=== PATIENT | male | born 1960 | race Caucasian/White ===

== ENCOUNTER 2017-08-06 04:01 | Emergency (ER) | payer MEDICARE ==
[~2017-08-06] VITALS: Ht 177.8 cm; Wt 87.6 kg
[~2017-08-06 04:01] MED LIST: HYDR-3534 PO; LEVO150T7 PO; METH4TAB6 PO; NAPR250T57 PO; NYST100010 SS; OMEP20TA PO
[2017-08-06 04:04] VITALS: BP 164/101; PULSE 99; RESP 18; TEMP 98.7; O2SAT 96
[2017-08-06] MEDS ORDERED: PROPARACAINE HCL 0.5% OPHT SOLN 15 ML BTL LEFT EYE ONE (04:15)
[2017-08-06] MEDS ORDERED: OMEP20TA PO (04:22)
[2017-08-06] MEDS ORDERED: HYDR-3288 PO (04:22)
[2017-08-06] MEDS ORDERED: LEVO150T7 PO (04:22)
[2017-08-06] MEDS ORDERED: POLY10O LEFT EYE (04:29)
--- NOTE | 2017-08-06 04:29 | PD ---
HPI Chief Complaint: Eye Problems/Injury Time Seen by Provider: 04:12 Travel History International Travel<30 days: No Contact w/Intl Traveler<30days: No Traveled to known affect area: No History of Present Illness HPI 57-year-old male here for evaluation of left side pain and left eye foreign body. The patient reports that he woke up at 11:00 PM with these symptoms. He noticed a black speck in his eye which she is unable to flush out. He denies vision changes. He is not work contacts. Pain is moderate. PFSH Past Medical History Cancer: Yes (larynx) Cardiovascular Problems: No Diabetes: No Endocrine: Yes Genitourinary: No Hepatitis: No Hiatal Hernia: No Immune Disorder: No Musculoskeletal: Yes (athritis) Neurologic: No Psychiatric: No Reproductive: No Respiratory: No Thyroid Disease: Yes ?: Not Past Surgical History AICD: No Joint Replacement: No Oral Surgery: Yes (laryngectomy) Pacemaker: No Social History Tobacco Use: No (former smoker) Substance Use: No Allergies-Medications (Allergen,Severity, Reaction): Coded Allergies: No Known Allergies (Unverified , 11/05/14) Reported Meds & Prescriptions Reported Meds & Active Scripts Active Polytrim Opth Drops (Polymyxin/Trimethoprim Sulfate) 10,000-0.1 Unit/Ml-% Soln 1 Drop LEFT EYE Q6HR Reported [place] (Hydrocodone-Acetaminophen) 7.5-325 mg Tab 1 Tab PO Q6H PRN Levothyroxine (Levothyroxine Sodium) 150 Mcg Tab 150 Mcg PO DAILY Omeprazole 20 Mg Tab 20 Mg PO DAILY Review of Systems Except as stated in HPI: all other systems reviewed are Neg Physical Exam Narrative GENERAL: Well-developed, well-nourished, comfortable, no apparent distress. EYES: Bilateral pupils are 3 mm, equal, round, reactive to light. There is left scleral injection. No eye drainage. Bilateral corneas are clear. Proparacaine was placed in the left eye with immediate relief of pain. Eyelids were everted and a small black speck was removed from the superior eyelid. Floor seen stain shows slight linear/horizontal corneal abrasion on the left eye 6 o'clock position. Negative Dawson sign. Pressure in the right eye is 19 mmHg. Pressure in the left eye is 18 mmHg. Visual acuity shows 20/40 in the left eye, 20/30 in the right eye, 20/25 in bilateral eyes. PSYCHIATRIC: Appropriate mood and affect; insight and judgment normal. Data Data Last Documented VS Vital Signs Date Time Temp Pulse Resp B/P (MAP) Pulse Ox O2 Delivery O2 Flow Rate FiO2 08/06/17 05:00 87 16 171/91 (117) 97 08/06/17 04:04 98.7 Orders Orders Proparacaine 0.5% Opth Soln (Alcaine 0.5 (08/06/17 04:15) Polymyxin/Trimethop Opht Soln (Polytrim (08/06/17 04:30) Ed Discharge Order (08/06/17 04:29) [facility] Medical Decision Making Medical Screen Exam Complete: Yes Emergency Medical Condition: Yes Differential Diagnosis Eye foreign body, corneal abrasion Narrative Course EYES: Bilateral pupils are 3 mm, equal, round, reactive to light. There is left scleral injection. No eye drainage. Bilateral corneas are clear. Proparacaine was placed in the left eye with immediate relief of pain. Eyelids were everted and a small black speck was removed from the superior eyelid. Floor seen stain shows slight linear/horizontal corneal abrasion on the left eye 6 o'clock position. Negative Dawson sign. Pressure in the right eye is 19 mmHg. Pressure in the left eye is 18 mmHg. Visual acuity shows 20/40 in the left eye, 20/30 in the right eye, 20/25 in bilateral eyes. The patient has a corneal abrasion on the left eye and a small foreign body was removed from the superior eyelid. Patient will be discharged home with a prescription for Polytrim and advised to follow-up with an window trimmer apprentice this week. He was informed on when to return to the emergency department. He verbalizes understanding and agreement with plan. Diagnosis Primary Impression: Foreign body of left eye Qualified Codes: T15.92XA - Foreign body on external eye, part unspecified, left eye, initial encounter Additional Impression: Left corneal abrasion Qualified Codes: S05.02XA - Injury of conjunctiva and corneal abrasion without foreign body, left eye, initial encounter Referrals: Carlee Arreola MD 3 days Additional Instructions: Follow-up with window trimmer apprentice Dr. Arreola or window trimmer apprentice of your choice this week. Take antibiotic eyedrops as prescribed. Return to the emergency department for worsening symptoms or any other concerns. Scripts Polymyxin B-Trimethoprim Opth Drops (Polytrim Opth Drops) 10,000-0.1 Unit/Ml-% Soln 1 DROP LEFT EYE Q6HR for Mgmt Bacterial Infection, #1 BOTTLE 0 Refills Prov: Seun Munoz MD 08/06/17 Disposition: 01 DISCHARGE HOME Condition: Stable Seun Munoz MD Aug 06, 2017 04:29
--- NOTE | 2017-08-06 04:29 | PD ---
HPI Chief Complaint: Eye Problems/Injury Time Seen by Provider: 04:12 Travel History International Travel<30 days: No Contact w/Intl Traveler<30days: No Traveled to known affect area: No History of Present Illness HPI 57-year-old male here for evaluation of left side pain and left eye foreign body. The patient reports that he woke up at 11:00 PM with these symptoms. He noticed a black speck in his eye which she is unable to flush out. He denies vision changes. He is not work contacts. Pain is moderate. PFSH Past Medical History Cancer: Yes (larynx) Cardiovascular Problems: No Diabetes: No Endocrine: Yes Genitourinary: No Hepatitis: No Hiatal Hernia: No Immune Disorder: No Musculoskeletal: Yes (athritis) Neurologic: No Psychiatric: No Reproductive: No Respiratory: No Thyroid Disease: Yes ?: Not Past Surgical History AICD: No Joint Replacement: No Oral Surgery: Yes (laryngectomy) Pacemaker: No Social History Tobacco Use: No (former smoker) Substance Use: No Allergies-Medications (Allergen,Severity, Reaction): Coded Allergies: No Known Allergies (Unverified , 11/05/14) Reported Meds & Prescriptions Reported Meds & Active Scripts Active Polytrim Opth Drops (Polymyxin/Trimethoprim Sulfate) 10,000-0.1 Unit/Ml-% Soln 1 Drop LEFT EYE Q6HR Reported [place] (Hydrocodone-Acetaminophen) 7.5-325 mg Tab 1 Tab PO Q6H PRN Levothyroxine (Levothyroxine Sodium) 150 Mcg Tab 150 Mcg PO DAILY Omeprazole 20 Mg Tab 20 Mg PO DAILY Review of Systems Except as stated in HPI: all other systems reviewed are Neg Physical Exam Narrative GENERAL: Well-developed, well-nourished, comfortable, no apparent distress. EYES: Bilateral pupils are 3 mm, equal, round, reactive to light. There is left scleral injection. No eye drainage. Bilateral corneas are clear. Proparacaine was placed in the left eye with immediate relief of pain. Eyelids were everted and a small black speck was removed from the superior eyelid. Floor seen stain shows slight linear/horizontal corneal abrasion on the left eye 6 o'clock position. Negative Dawson sign. Pressure in the right eye is 19 mmHg. Pressure in the left eye is 18 mmHg. Visual acuity shows 20/40 in the left eye, 20/30 in the right eye, 20/25 in bilateral eyes. PSYCHIATRIC: Appropriate mood and affect; insight and judgment normal. Data Data Last Documented VS Vital Signs Date Time Temp Pulse Resp B/P (MAP) Pulse Ox O2 Delivery O2 Flow Rate FiO2 08/06/17 05:00 87 16 171/91 (117) 97 08/06/17 04:04 98.7 Orders Orders Proparacaine 0.5% Opth Soln (Alcaine 0.5 (08/06/17 04:15) Polymyxin/Trimethop Opht Soln (Polytrim (08/06/17 04:30) Ed Discharge Order (08/06/17 04:29) [facility] Medical Decision Making Medical Screen Exam Complete: Yes Emergency Medical Condition: Yes Differential Diagnosis Eye foreign body, corneal abrasion Narrative Course EYES: Bilateral pupils are 3 mm, equal, round, reactive to light. There is left scleral injection. No eye drainage. Bilateral corneas are clear. Proparacaine was placed in the left eye with immediate relief of pain. Eyelids were everted and a small black speck was removed from the superior eyelid. Floor seen stain shows slight linear/horizontal corneal abrasion on the left eye 6 o'clock position. Negative Dawson sign. Pressure in the right eye is 19 mmHg. Pressure in the left eye is 18 mmHg. Visual acuity shows 20/40 in the left eye, 20/30 in the right eye, 20/25 in bilateral eyes. The patient has a corneal abrasion on the left eye and a small foreign body was removed from the superior eyelid. Patient will be discharged home with a prescription for Polytrim and advised to follow-up with an diamond cutter this week. He was informed on when to return to the emergency department. He verbalizes understanding and agreement with plan. Diagnosis Primary Impression: Foreign body of left eye Qualified Codes: T15.92XA - Foreign body on external eye, part unspecified, left eye, initial encounter Additional Impression: Left corneal abrasion Qualified Codes: S05.02XA - Injury of conjunctiva and corneal abrasion without foreign body, left eye, initial encounter Referrals: Carlee Arreola MD 3 days Additional Instructions: Follow-up with diamond cutter Dr. Arreola or diamond cutter of your choice this week. Take antibiotic eyedrops as prescribed. Return to the emergency department for worsening symptoms or any other concerns. Scripts Polymyxin B-Trimethoprim Opth Drops (Polytrim Opth Drops) 10,000-0.1 Unit/Ml-% Soln 1 DROP LEFT EYE Q6HR for Mgmt Bacterial Infection, #1 BOTTLE 0 Refills Prov: Seun Munoz MD 08/06/17 Disposition: 01 DISCHARGE HOME Condition: Stable Seun Munoz MD Aug 06, 2017 04:29
--- NOTE | 2017-08-06 04:29 | PD ---
HPI Chief Complaint: Eye Problems/Injury Time Seen by Provider: 04:12 Travel History International Travel<30 days: No Contact w/Intl Traveler<30days: No Traveled to known affect area: No History of Present Illness HPI 57-year-old male here for evaluation of left side pain and left eye foreign body. The patient reports that he woke up at 11:00 PM with these symptoms. He noticed a black speck in his eye which she is unable to flush out. He denies vision changes. He is not work contacts. Pain is moderate. PFSH Past Medical History Cancer: Yes (larynx) Cardiovascular Problems: No Diabetes: No Endocrine: Yes Genitourinary: No Hepatitis: No Hiatal Hernia: No Immune Disorder: No Musculoskeletal: Yes (athritis) Neurologic: No Psychiatric: No Reproductive: No Respiratory: No Thyroid Disease: Yes ?: Not Past Surgical History AICD: No Joint Replacement: No Oral Surgery: Yes (laryngectomy) Pacemaker: No Social History Tobacco Use: No (former smoker) Substance Use: No Allergies-Medications (Allergen,Severity, Reaction): Coded Allergies: No Known Allergies (Unverified , 11/05/14) Reported Meds & Prescriptions Reported Meds & Active Scripts Active Polytrim Opth Drops (Polymyxin/Trimethoprim Sulfate) 10,000-0.1 Unit/Ml-% Soln 1 Drop LEFT EYE Q6HR Reported [place] (Hydrocodone-Acetaminophen) 7.5-325 mg Tab 1 Tab PO Q6H PRN Levothyroxine (Levothyroxine Sodium) 150 Mcg Tab 150 Mcg PO DAILY Omeprazole 20 Mg Tab 20 Mg PO DAILY Review of Systems Except as stated in HPI: all other systems reviewed are Neg Physical Exam Narrative GENERAL: Well-developed, well-nourished, comfortable, no apparent distress. EYES: Bilateral pupils are 3 mm, equal, round, reactive to light. There is left scleral injection. No eye drainage. Bilateral corneas are clear. Proparacaine was placed in the left eye with immediate relief of pain. Eyelids were everted and a small black speck was removed from the superior eyelid. Floor seen stain shows slight linear/horizontal corneal abrasion on the left eye 6 o'clock position. Negative Dawson sign. Pressure in the right eye is 19 mmHg. Pressure in the left eye is 18 mmHg. Visual acuity shows 20/40 in the left eye, 20/30 in the right eye, 20/25 in bilateral eyes. PSYCHIATRIC: Appropriate mood and affect; insight and judgment normal. Data Data Last Documented VS Vital Signs Date Time Temp Pulse Resp B/P (MAP) Pulse Ox O2 Delivery O2 Flow Rate FiO2 08/06/17 05:00 87 16 171/91 (117) 97 08/06/17 04:04 98.7 Orders Orders Proparacaine 0.5% Opth Soln ([place] 0.5 (08/06/17 04:15) Polymyxin/Trimethop Opht Soln (Polytrim (08/06/17 04:30) Ed Discharge Order (08/06/17 04:29) [facility] Medical Decision Making Medical Screen Exam Complete: Yes Emergency Medical Condition: Yes Differential Diagnosis Eye foreign body, corneal abrasion Narrative Course EYES: Bilateral pupils are 3 mm, equal, round, reactive to light. There is left scleral injection. No eye drainage. Bilateral corneas are clear. Proparacaine was placed in the left eye with immediate relief of pain. Eyelids were everted and a small black speck was removed from the superior eyelid. Floor seen stain shows slight linear/horizontal corneal abrasion on the left eye 6 o'clock position. Negative Dawson sign. Pressure in the right eye is 19 mmHg. Pressure in the left eye is 18 mmHg. Visual acuity shows 20/40 in the left eye, 20/30 in the right eye, 20/25 in bilateral eyes. The patient has a corneal abrasion on the left eye and a small foreign body was removed from the superior eyelid. Patient will be discharged home with a prescription for Polytrim and advised to follow-up with an slope tender this week. He was informed on when to return to the emergency department. He verbalizes understanding and agreement with plan. Diagnosis Primary Impression: Foreign body of left eye Qualified Codes: T15.92XA - Foreign body on external eye, part unspecified, left eye, initial encounter Additional Impression: Left corneal abrasion Qualified Codes: S05.02XA - Injury of conjunctiva and corneal abrasion without foreign body, left eye, initial encounter Referrals: Carlee Arreola MD 3 days Additional Instructions: Follow-up with slope tender Dr. Arreola or slope tender of your choice this week. Take antibiotic eyedrops as prescribed. Return to the emergency department for worsening symptoms or any other concerns. Scripts Polymyxin B-Trimethoprim Opth Drops (Polytrim Opth Drops) 10,000-0.1 Unit/Ml-% Soln 1 DROP LEFT EYE Q6HR for Mgmt Bacterial Infection, #1 BOTTLE 0 Refills Prov: Seun Munoz MD 08/06/17 Disposition: 01 DISCHARGE HOME Condition: Stable Seun Munoz MD Aug 06, 2017 04:29
[2017-08-06] MEDS ORDERED: POLYMYXIN/TRIMETHOPRIM OPHT SOLN 10 ML BTL LEFT EYE ONE (04:30)
[2017-08-06 05:00] VITALS: BP 171/91
== END 2017-08-06 05:02 | disposition home or self-care (01) ==
LOC: PHED 04:01
DX: T15.02XA Foreign body in cornea, left eye, initial encounter (principal); X58.XXXA Exposure to other specified factors, initial encounter
CPT/HCPCS: 65220